=== PATIENT | male | born 1980 | race Caucasian/White ===

== ENCOUNTER 2018-12-13 16:00 | Emergency (ER) | payer OTHER ==
[~2018-12-13] VITALS: Ht 175.3 cm; Wt 180.0 kg
[2018-12-13] MEDS ORDERED: normal saline 1000ML IV soln IVB ONE (16:55)
[2018-12-13] MEDS ORDERED: ondansetron/PF 4mg/2ml inj IV ONE (16:55)
[2018-12-13 17:09] LABS: BASOPHILS % (AUTO) 0.1 % (0-1); EOSINOPHILS # (AUTO) 0.1 X10'3 (0-0.9); EOSINOPHILS % (AUTO) 0.5 % (0-6); HEMATOCRIT 41.5 % (42.0-52.0); HEMOGLOBIN 14.3 g/dl (14.0-17.9); LYMPHOCYTES # (AUTO) 0.8 X10'3 (1.1-4.8); LYMPHOCYTES % (AUTO) 6.8 % (21-51); MEAN CORPUSCULAR HEMOGLOBIN 30.4 PG (27.0-31.0); MEAN CORPUSCULAR HGB CONC 34.5 g/dL (33.0-36.5); MEAN CORPUSCULAR VOLUME 88.1 FL (78-98); MEAN PLATELET VOLUME 8.1 FL (7.4-10.4); MONOCYTES # (AUTO) 0.6 X10'3 (0-0.9); MONOCYTES % (AUTO) 5.4 % (2-12); NEUTROPHILS # (AUTO) 10.1 X10'3 (1.8-7.7); NEUTROPHILS % (AUTO) 87.2 % (42-75); PLATELET COUNT 265 X10'3 (140-440); RED BLOOD COUNT 4.71 X10'6 (4.70-6.10); RED CELL DISTRIBUTION WIDTH 13.1 % (11.5-14.5); WHITE BLOOD COUNT 11.6 X10'3 (4.5-11.0)
[2018-12-13 17:26] LABS: ALANINE AMINOTRANSFERASE 67 U/L (12-78); ALBUMIN 4.4 G/DL (3.4-5.0); ALBUMIN/GLOBULIN RATIO 1.3 (1.1-1.5); ALKALINE PHOSPHATASE 100 IU/L (46-116); ANION GAP 16 (8-16); ASPARTATE AMINO TRANSFERASE 61 U/L (10-37); BILIRUBIN,TOTAL 0.6 MG/DL (0.1-1.0); BLOOD UREA NITROGEN 14 MG/DL (7-18); BUN/CREATININE RATIO 11.6 (5.4-32.0); CHLORIDE 105 MMOL/L (99-107); CREATININE 1.21 MG/DL (0.60-1.10); GLUCOSE 162 MG/DL (70-104); LIPASE 156 U/L (73-393); POTASSIUM 3.4 MMOL/L (3.5-5.1); SODIUM 142 MMOL/L (135-145); TOTAL CARBON DIOXIDE 20.7 MMOL/L (24-32); TOTAL PROTEIN 7.7 G/DL (6.4-8.2); eGFR 67 ML/MIN
[2018-12-13] MEDS: morphine 4 MG/ML inj SYRINge IV PRN ×2 (17:28→18:03)
--- NOTE | 2018-12-13 17:56 | NUR ---
patient to CT
--- NOTE | 2018-12-13 19:02 | NUR ---
URINAL PROVIDED FOR UA PATIENT OR A STRAIGHT CATHETER PATIENT VERBALLY REFUSED DR. BECKETT IS NOTIFIED PATIENT IS DENYING PROVIDING AN UA AND REFUSING A STRAIGHT CATH
[2018-12-13] MEDS ORDERED: SUCR1TAB34 PO (19:32)
[2018-12-13] MEDS ORDERED: PANT-47 PO (19:32)
[2018-12-13] MEDS ORDERED: ONDA4TAB12 PO (19:32)
[2018-12-13 19:45] VITALS: BP 115/72
== END 2018-12-13 19:47 | disposition home or self-care (01) ==
LOC: ER 16:02
DX: R10.84 Generalized abdominal pain (principal); R11.2 Nausea with vomiting, unspecified; Z79.899 Other long term (current) drug therapy
CPT/HCPCS: 36415; 71045; 74176; 80053; 83690; 85025; 96361; 96374; 96375; 96376; 99284; J2270; J2405; J7030

== ENCOUNTER 2018-12-17 07:56 | Emergency (ER) | payer OTHER ==
[~2018-12-17] VITALS: Ht 175.3 cm; Wt 81.8 kg
[~2018-12-17 07:56] MED LIST: ONDA4TAB12 PO; PANT-47 PO; SUCR1TAB34 PO
[2018-12-17] MEDS ORDERED: diphenhydrAMINE 50 mg/ml inj IV ONE (08:10)
[2018-12-17] MEDS ORDERED: ondansetron/PF 4mg/2ml inj IV ONE (08:10)
[2018-12-17] MEDS ORDERED: normal saline 1000ML IV soln IVB ONE (08:10)
[2018-12-17] MEDS ORDERED: haloperidol lactate 5mg/ml inj IM ONE ×2 (08:10→09:25)
--- NOTE | 2018-12-17 08:15 | NUR ---
Dr Bowles in with patient at this time.
--- NOTE | 2018-12-17 08:33 | NUR ---
Rn not Addendum: 12/17/18 at 0833 by [email or web address] COOPER notified Dr Bowles that the patient is requesting morphine for his epigastric pain and that the patient refused Haldol.
[2018-12-17] MEDS ORDERED: ketorolac trometh. 30mg/ml inj. IV ONE (08:35)
[2018-12-17] MEDS ORDERED: LORazepam 2 mg/ml vial IV ONE (08:55)
[2018-12-17 08:56] LABS: ALANINE AMINOTRANSFERASE 52 U/L (12-78); ALBUMIN 4.1 G/DL (3.4-5.0); ALBUMIN/GLOBULIN RATIO 1.1 (1.1-1.5); ALKALINE PHOSPHATASE 95 IU/L (46-116); ANION GAP 11 (8-16); ASPARTATE AMINO TRANSFERASE 33 U/L (10-37); BILIRUBIN,TOTAL 0.3 MG/DL (0.1-1.0); BLOOD UREA NITROGEN 13 MG/DL (7-18); BUN/CREATININE RATIO 12.9 (5.4-32.0); CALCIUM 9.7 MG/DL (8.5-10.1); CHLORIDE 104 MMOL/L (99-107); CREATININE 1.01 MG/DL (0.60-1.10); GLUCOSE 94 MG/DL (70-104); LIPASE 149 U/L (73-393); POTASSIUM 3.9 MMOL/L (3.5-5.1); SODIUM 142 MMOL/L (135-145); TOTAL CARBON DIOXIDE 27.2 MMOL/L (24-32); TOTAL PROTEIN 7.8 G/DL (6.4-8.2); eGFR 82 ML/MIN
[2018-12-17 09:02] LABS: BASOPHILS % (AUTO) 0.6 % (0-1); EOSINOPHILS # (AUTO) 0.1 X10'3 (0-0.9); EOSINOPHILS % (AUTO) 2.6 % (0-6); HEMATOCRIT 42.4 % (42.0-52.0); HEMOGLOBIN 14.6 g/dl (14.0-17.9); LYMPHOCYTES % (AUTO) 36.6 % (21-51); MEAN CORPUSCULAR HEMOGLOBIN 30.7 PG (27.0-31.0); MEAN CORPUSCULAR HGB CONC 34.4 g/dL (33.0-36.5); MEAN CORPUSCULAR VOLUME 89.4 FL (78-98); MEAN PLATELET VOLUME 7.9 FL (7.4-10.4); MONOCYTES # (AUTO) 0.5 X10'3 (0-0.9); MONOCYTES % (AUTO) 8.6 % (2-12); NEUTROPHILS # (AUTO) 2.8 X10'3 (1.8-7.7); NEUTROPHILS % (AUTO) 51.6 % (42-75); PLATELET COUNT 245 X10'3 (140-440); RED BLOOD COUNT 4.74 X10'6 (4.70-6.10); RED CELL DISTRIBUTION WIDTH 13.2 % (11.5-14.5); WHITE BLOOD COUNT 5.5 X10'3 (4.5-11.0)
--- NOTE | 2018-12-17 09:04 | NUR ---
RN notified Dr Bowles of patient's continued vomiting.
--- NOTE | 2018-12-17 09:19 | NUR ---
Dr Bowles in with patient at this time.
--- NOTE | 2018-12-17 09:53 | NUR ---
Patient up ad sharona for using the restroom.
--- NOTE | 2018-12-17 09:55 | NUR ---
PATIENT GIVEN A GLASS OF WATER AT THIS TIME FOR PO CHALLENGE.
--- NOTE | 2018-12-17 10:03 | NUR ---
RN NOTIFIED DR GILLETTE THAT PATIENT RESTARTED VOMITING.
[2018-12-17] MEDS ORDERED: morphine 4 MG/ML inj SYRINge IV ONE (10:05)
--- NOTE | 2018-12-17 10:34 | NUR ---
PATIENT HAS NO VOMITING AT THIS TIME, RR IS 12. RN DISCUSSED WITH DR GILLETTE THAT PATIENT PATIENT DOES NOT NEED MORPHINE DUE TO DECREASED NAUSEA AND SLEEPINESS.
[2018-12-17 10:36] VITALS: BP 134/74
== END 2018-12-17 10:35 | disposition home or self-care (01) ==
LOC: ER 07:57
DX: G43.A1 Cyclical vomiting, in migraine, intractable (principal); R05 Cough; R06.02 Shortness of breath; F12.90 Cannabis use, unspecified, uncomplicated
CPT/HCPCS: 36415; 80053; 82948; 83690; 85025; 96361; 96372; 96374; 96375; 99284; J1200; J1630; J1885; J2060; J2270; J2405; J7030

== ENCOUNTER 2020-08-20 12:56 | Emergency (ER) | payer OTHER ==
[~2020-08-20] VITALS: Ht 175.3 cm; Wt 75.0 kg
[2020-08-20] MEDS ORDERED: normal saline 1000ML IV soln IVB ONE (13:15)
[2020-08-20] MEDS ORDERED: haloperidol lactate 5mg/ml inj IM ONE ×2 (13:15→15:05)
[2020-08-20] MEDS ORDERED: metoclopramide 5 mg/ml inj IV ONE (13:15)
[2020-08-20 13:59] LABS: BASOPHILS % (AUTO) 0.2 % (0-1); EOSINOPHILS % (AUTO) 0 % (0-6); HEMATOCRIT 42.6 % (42.0-52.0); HEMOGLOBIN 14.6 g/dl (14.0-17.9); LYMPHOCYTES # (AUTO) 0.6 X10'3 (1.1-4.8); LYMPHOCYTES % (AUTO) 5.5 % (21-51); MEAN CORPUSCULAR HEMOGLOBIN 32.1 PG (27.0-31.0); MEAN CORPUSCULAR HGB CONC 34.4 g/dL (33.0-36.5); MEAN CORPUSCULAR VOLUME 93.4 FL (78-98); MEAN PLATELET VOLUME 7.6 FL (7.4-10.4); MONOCYTES # (AUTO) 0.3 X10'3 (0-0.9); NEUTROPHILS # (AUTO) 9.2 X10'3 (1.8-7.7); NEUTROPHILS % (AUTO) 91.3 % (42-75); PLATELET COUNT 239 X10'3 (140-440); RED BLOOD COUNT 4.56 X10'6 (4.70-6.10); RED CELL DISTRIBUTION WIDTH 13.2 % (11.5-14.5)
[2020-08-20 14:07] LABS: MAGNESIUM 1.8 MG/DL (1.5-2.4)
[2020-08-20] MEDS ORDERED: LORazepam 0.5 MG tablet PO PRN (15:05)
--- NOTE | 2020-08-20 15:38 | NUR ---
spoke to catia alfaro regarding covid testing as per catia alfaro ,we don't need to collect covid swab,notified charge nurse harley and as per harley she will cancel the order.
[2020-08-20 15:58] VITALS: BP 147/68
== END 2020-08-20 16:03 | disposition home or self-care (01) ==
LOC: ER 12:57
DX: R11.15 Cyclical vomiting syndrome unrelated to migraine (principal); Z20.828 Contact with and (suspected) exposure to other viral communicable diseases
CPT/HCPCS: 36415; 74022; 83690; 83735; 85025; 87635; 96361; 96372; 96374; 99284; J1630; J2765; J7030

== ENCOUNTER 2020-08-24 11:17 | Emergency (ER) | payer OTHER ==
[~2020-08-24] VITALS: Ht 172.7 cm; Wt 71.4 kg
[2020-08-24] MEDS ORDERED: diphenhydrAMINE 50 mg/ml inj IM ONE (12:05)
[2020-08-24] MEDS ORDERED: normal saline 1000ML IV soln IVB ONE (12:05)
[2020-08-24] MEDS ORDERED: haloperidol lactate 5mg/ml inj IM ONE (12:05)
[2020-08-24] MEDS ORDERED: LORazepam 2 mg/ml vial IM ONE (12:05)
[2020-08-24 12:09] LABS: BASOPHILS % (AUTO) 0.3 % (0-1); EOSINOPHILS % (AUTO) 0.1 % (0-6); HEMATOCRIT 43.3 % (42.0-52.0); LYMPHOCYTES # (AUTO) 0.8 X10'3 (1.1-4.8); LYMPHOCYTES % (AUTO) 10.4 % (21-51); MEAN CORPUSCULAR HEMOGLOBIN 32.4 PG (27.0-31.0); MEAN CORPUSCULAR HGB CONC 34.6 g/dL (33.0-36.5); MEAN CORPUSCULAR VOLUME 93.6 FL (78-98); MEAN PLATELET VOLUME 7.6 FL (7.4-10.4); MONOCYTES # (AUTO) 0.5 X10'3 (0-0.9); MONOCYTES % (AUTO) 6.2 % (2-12); NEUTROPHILS # (AUTO) 6.2 X10'3 (1.8-7.7); PLATELET COUNT 219 X10'3 (140-440); RED BLOOD COUNT 4.62 X10'6 (4.70-6.10); WHITE BLOOD COUNT 7.5 X10'3 (4.5-11.0)
[2020-08-24 12:21] LABS: ALANINE AMINOTRANSFERASE 69 U/L (12-78); ALBUMIN 4.5 G/DL (3.4-5.0); ALBUMIN/GLOBULIN RATIO 1.3 (1.1-1.5); ALKALINE PHOSPHATASE 97 IU/L (46-116); ANION GAP 10 (8-16); ASPARTATE AMINO TRANSFERASE 45 U/L (10-37); BILIRUBIN,TOTAL 0.8 MG/DL (0.1-1.0); BLOOD UREA NITROGEN 19 MG/DL (7-18); BUN/CREATININE RATIO 16.7 (5.4-32.0); CALCIUM 9.3 MG/DL (8.5-10.1); CHLORIDE 106 MMOL/L (99-107); CREATININE 1.14 MG/DL (0.60-1.10); GLUCOSE 125 MG/DL (70-104); LIPASE 114 U/L (73-393); SODIUM 142 MMOL/L (135-145); TOTAL CARBON DIOXIDE 26.5 MMOL/L (24-32); TOTAL PROTEIN 7.9 G/DL (6.4-8.2); eGFR 71 ML/MIN
--- NOTE | 2020-08-24 12:22 | NUR ---
received an order from Srinivas JONES to administer benadryl and ativan iv instead of IM.
--- NOTE | 2020-08-24 12:23 | NUR ---
Reminded patient urine is needed.patient crying.due meds given.
[2020-08-24 13:24] VITALS: BP 151/88
[2020-08-24] MEDS ORDERED: ONDA4TAB6 PO (13:31)
== END 2020-08-24 13:38 | disposition home or self-care (01) ==
LOC: ER 11:18
DX: R10.84 Generalized abdominal pain (principal); R11.15 Cyclical vomiting syndrome unrelated to migraine; R11.2 Nausea with vomiting, unspecified; F12.10 Cannabis abuse, uncomplicated; Z79.899 Other long term (current) drug therapy
CPT/HCPCS: 36415; 80053; 83690; 85025; 96360; 96372; 99284; J1200; J1630; J2060; J7030